=== PATIENT | male | born 1965 | race African-American/Black ===

== ENCOUNTER 2019-04-19 11:48 | Emergency (ER) | payer MEDICAID, MEDICARE ==
[~2019-04-19] VITALS: Ht 167.6 cm; Wt 86.0 kg
[2019-04-19 13:07] LABS: HEMATOCRIT. 41.4 % (42.0-52.0); MEAN CORPUSCULAR HEMOGLOBIN 29.4 pg (28.0-32.0); MEAN CORPUSCULAR VOLUME 86.9 fL (80.0-94.0); MEAN PLATELET VOLUME 9.8 fl (7.4-10.4); PLATELET 141 x1000/uL (130-400); RED BLOOD CELL COUNT 4.77 mill/uL (4.7-6.1)
[2019-04-19 13:21] LABS: CHLORIDE 105 mEq/L (98-107)
[2019-04-19 13:34] LABS: PLATELET ESTIMATE NORMAL
[2019-04-19] MEDS ORDERED: PREDNISONE 20MG TABLET PO STA (14:22)
[2019-04-19] MEDS ORDERED: ALBUTEROL (0.083%) 2.5MG/3ML NEB HHN STA (14:22)
[2019-04-19] MEDS ORDERED: IPRATROPIUM BROMIDE (0.02%) 0.5MG/2.5ML NEB HHN STA (14:22)
[2019-04-19 15:46] VITALS: BP 134/75
== END 2019-04-19 20:20 | disposition home or self-care (01) ==
LOC: ER 11:48
DX: J20.9 Acute bronchitis, unspecified (principal); R07.89 Other chest pain; R05 Cough; R00.0 Tachycardia, unspecified; I10 Essential (primary) hypertension; F17.200 Nicotine dependence, unspecified, uncomplicated
CPT/HCPCS: 36415; 71045; 80053; 83880; 84484; 85025; 93005; 94640; 99285; J7512; J7610; Z7610